=== PATIENT | female | born 1990 | race Caucasian/White ===

== ENCOUNTER 2019-06-18 13:05 | Outpatient (CLI) ==
[2019-05-22 06:54] VITALS: BMI 36.1
== END 2019-06-18 13:06 | disposition home or self-care (01) ==
LOC: CAR 13:05
PROVIDERS: ATTEND Nurse Practitioner
DX: R00.1 Bradycardia, unspecified (principal); R10.9 Unspecified abdominal pain; R11.2 Nausea with vomiting, unspecified; R19.8 Other specified symptoms and signs involving the digestive system and abdomen; R55 Syncope and collapse; Z87.898 Personal history of other specified conditions
CPT/HCPCS: 36415; 85025; 86677; 93227